=== PATIENT | female | born 1955 | race African-American/Black ===

== ENCOUNTER 2017-03-18 08:18 | Inpatient (IN) | payer OTHER ==
[2017-03-18 08:57] VITALS: BMI 32.4
--- NOTE | 2017-03-18 11:53 | HP ---
CIWA Score - CIWA Score Nausea/Vomitin Muscle Tremors: 4-Moderate,w/Arms Extend Anxiety: 4-Mod. Anxious/Guarded Agitation: 4-Moderately Restless Paroxysmal Sweats: 1-Minimal Palms Moist Orientation: 0-Oriented Tacttile Disturbances: 3-Moderate Itch/Numb/Burn Auditory Disturbances: 0-None Visual Disturbances: 0-None Headache: 0-None Present CIWA-Ar Total Score: 21 Admission ROS BHS - HPI Chief Complaint: DETOX TX FOR ALCOHOL DEPENDENCE Allergies/Adverse Reactions: Allergies Allergy/AdvReac Type Severity Reaction Status Date / Time No Known Allergies Allergy Verified 03/18/17 09:54 History of Present Illness: 61 Y/O AA/FEMALE WITH A HX OF ALCOHOL DEPENDENCE SEEKING DETOX TX. PT WAS TAKEN BY AMBULANCE TO [facility] LAST NIGHT DUE TO ALCOHOL INTOXICATION AND DISCHARGED THIS MORNING, REFERRED TO DETOX. Exam Limitations: No Limitations - Ebola screening Have you traveled outside of the country in the last 21 days: No Have you had contact with anyone from an Ebola affected area: No Have you been sick,other than usual withdrawal symptoms: No Do you have a fever: No - Review of Systems Constitutional: Chills, Loss of Appetite, Night Sweats, Changes in sleep EENT: reports: Blurred Vision, Nose Congestion, Dental Problems (DENTAL EXTRACTION 03/17/17.) Respiratory: reports: No Symptoms reported Cardiac: reports: Lightheadedness GI: reports: Diarrhea, Nausea, Poor Appetite, Poor Fluid Intake, Vomiting : reports: Frequency Musculoskeletal: reports: Back Pain, Joint Pain, Muscle Pain, Other (HX ARTHRITIS KNEE/HIP) Integumentary: reports: No Symptoms Reported Neuro: reports: Tremors, Unsteady Gait, Dizziness, Other (HX FALLS DUE TO ALCOHOL INTOXICATION; 2 BROKEN LEFT RIB 02/14/17.) Endocrine: reports: No Symptoms Reported Hematology: reports: No Symptoms Reported, Anemia Psychiatric: reports: Orientated x3, Anxious, Depressed Other Systems: Reviewed and Negative Patient History - Patient Medical History Hx Anemia: Yes (B12 WEEKLY INJ IN THE PAST) Hx Asthma: No Hx Chronic Obstructive Pulmonary Disease (COPD): No Hx Cardiac Disorders: Yes (2 stents-2014) Hx Hypertension: Yes (ON MED) Hx Hypercholesterolemia: Yes (ON MED) HX Cerebrovascular Accident: No Hx Seizures: No Hx Diabetes: No Hx Gastrointestinal Disorders: No Hx Genitourinary Disorders: Yes (UTI IN THE PAST) Hx Sexually Transmitted Disorders: Yes (SYPHILIS TX IN THE PAST) Hx Renal Disease (ESRD): No Hx Thyroid Disease: No Hx Human Immunodeficiency Virus (HIV): No (NEGATIVE HX) Hx Hepatitis C: No Hx Depression: Yes (ON MED--ABILIFY;PAXIL) Hx Suicide Attempt: Yes (cut left wrist in 2014) Hx Schizophrenia: No Other Medical History: HX 1 STENT IN LEFT THIGH;[place] I RIGHT THIGH- 2016 - Patient Surgical History Past Surgical History: Yes Hx Neurologic Surgery: No Hx Cataract Extraction: No Hx Cardiac Surgery: Yes (2 stents/cardiac catheterizations X 3) Hx Lung Surgery: No Hx Breast Surgery: No Hx Breast Biopsy: No Hx Abdominal Surgery: No Hx Appendectomy: No Hx Cholecystectomy: No Hx Genitourinary Surgery: No Hx Section: No Hx Orthopedic Surgery: No Hx Hysterectomy: Yes (1990; WITH ONE OVARY INTACT.) Other Surgical History: balloon, right extremity/stent. left extremity Anesthesia Reaction: No - PPD History Previous Implant?: Yes Documented Results: Positive w/o proof Implanted On Prior [facility] Admission?: No Results: CXR TBD PPD to be Administered?: No - Reproductive History Patient is a Female of Child Bearing Age (11 -55 yrs old): No (HX HYSTERECTOMY W / ONE OVARY IN PLACE.) LMP comment: 1990-HYSTERECTOMY Patient : No - Smoking Cessation Smoking history: Current every day smoker Have you smoked in the past 12 months: Yes Aproximately how many cigarettes per day: 2 Hx Chewing Tobacco Use: No Initiated information on smoking cessation: Yes 'Breaking Loose' booklet given: 03/18/17 - Substance & Tx. History Hx Alcohol Use: Yes (RUM/BEER) Hx Substance Use: Yes (MARIJUANA) Substance Use Type: Alcohol, Marijuana Hx Substance Use Treatment: Yes - Substances Abused Alcohol-rum/beer Route: Oral Frequency: Daily Amount used: 2 pts./8 (12 oz.) Age of first use: 10 Date of Last Use: 03/17/17 Marijuana Route: Smoking Frequency: 1-2 times per week Amount used: $10-20 Age of first use: 19 Date of Last Use: 03/17/17 Family Disease History - Family Disease History Family Disease History: Heart Disease: Mother (UT; STROKE-), Other: Father (AIDS-), Mother Admission Physical Exam [facility] - Vital Signs Vital Signs: Vital Signs - 24 hr 03/18/17 08:55 Temperature 98.3 F Pulse Rate 102 H Respiratory 20 Rate Blood Pressure 159/104 - Physical General Appearance: Yes: Moderate Distress, Obese, Irritable, Anxious HEENTM: Yes: EOMI, Normocephalic, SANAM, Pharynx Normal Respiratory: Yes: Chest Non-Tender, Lungs Clear, Normal Breath Sounds, No Respiratory Distress Neck: Yes: Supple, Trachea in good position Breast: Yes: Breast Exam Deferred Cardiology: Yes: Regular Rhythm, S1, S2, Tachycardia Abdominal: Yes: Normal Bowel Sounds, Non Tender, Soft, Protuberent Genitourinary: Yes: Other (N/C) Back: Yes: Within Normal Limits Musculoskeletal: Yes: full range of Motion, Gait Steady Extremities: Yes: Normal Range of Motion, Non-Tender, Tremors Neurological: Yes: manager center II-XII NML intact, Fully Oriented, Alert Integumentary: Yes: Dry, Warm Lymphatic: Yes: Within Normal Limits - Diagnostic (1) Alcohol dependence with uncomplicated withdrawal Current Visit: Yes Status: Acute (2) HTN (hypertension) Current Visit: Yes Status: Chronic Qualifiers: Hypertension type: essential hypertension Qualified Code(s): I10 - Essential (primary) hypertension (3) Hypercholesterolemia Current Visit: Yes Status: Chronic (4) S/P cardiac catheterization Current Visit: Yes Status: Chronic (5) S/P angioplasty with stent Current Visit: Yes Status: Chronic (6) History of anemia Current Visit: Yes Status: Suspected Cleared for Admission [facility] - Detox or Rehab [facility] Level of Care: Medically Managed Detox Regimen/Protocol: Librium [facility] Breath Alcohol Content Breath Alcohol Content: 0 Urine Pregancy Test - Result Urine Test Results: Negative- NO Line Present Urine Drug Screen - Results Drug Screen Negative: No Urine Drug Screen Results: THC-Marijuana
[2017-03-18] MEDS ORDERED: P-EPHED 60MG/TRIPROLIDI 2.5MG TABLET PO PRN (12:14)
[2017-03-18] MEDS ORDERED: IBUPROFEN 400 MG TABLET (FP) PO PRN (12:14)
[2017-03-18] MEDS ORDERED: MAGNESIUM CITRATE 300 ML BOTTLE PO PRN (12:14)
[2017-03-18] MEDS ORDERED: LOPERAMIDE HCL 2 MG CAPSULE PO PRN (12:14)
[2017-03-18] MEDS ORDERED: chlordiazePOXIDE HCL 25 MG CAPSULE PO PRN (12:14)
[2017-03-18] MEDS ORDERED: MENTHOL/PHENOL 1 EACH UD MM PRN (12:14)
[2017-03-18] MEDS ORDERED: hydrOXYzine PAMOATE 25 MG CAPSULE (FP) PO PRN (12:14)
[2017-03-18] MEDS ORDERED: NICOTINE POLACRILEX 2 MG GUM BUC PRN (12:14)
[2017-03-18] MEDS ORDERED: ACETAMINOPHEN 325 MG TABLET (FP) PO PRN (12:14)
[2017-03-18] MEDS ORDERED: MAGNESIUM HYDROX 2400MG/30ML ORAL SUSPENSION 30 ML CUP PO PRN (12:14)
[2017-03-18] MEDS ORDERED: MAG HYDROX/AL HYDROX/SIMETH 30 ML UNIT-DOSE CUP PO PRN (12:14)
[2017-03-18] MEDS ORDERED: guaiFENesin/D-METHORPHAN HB 10 ML UNIT-DOSE CUPS PO PRN (12:14)
[2017-03-18] MEDS ORDERED: chlordiazePOXIDE HCL 25 MG CAPSULE PO ONE (12:29)
[2017-03-18] MEDS: NICOTINE 14 MG/24 HOURS TOPICAL PATCH TD SCH (13:36)
[2017-03-18 17:01] LABS: URINE APPEARANCE SLCLOUDY; URINE BILIRUBIN NEGATIVE (NEGATIVE); URINE BLOOD NEGATIVE (NEGATIVE); URINE COLOR YELLOW; URINE GLUCOSE (UA) NEGATIVE (NEGATIVE); URINE KETONE NEGATIVE (NEGATIVE); URINE NITRITE NEGATIVE (NEGATIVE); URINE PROTEIN NEGATIVE (NEGATIVE); URINE UROBILINOGEN NEGATIVE E.U./dl (0.2-1.0)
--- NOTE | 2017-03-18 17:16 | CONSULT ---
[facility] Psychiatric Consult - Data Date of interview: 03/18/17 Admission source: [facility] Identifying data: First admission to [facility] for this 61 y/o AA female seeking detox treatment,on ,for alcohol and marijuana dependence.Patient is single,a mother of two,domiciled,retired from [employer] and supported on pension + Social Security Disability benefits. Substance Abuse History: - Smoking Cessation. Smoking history: Current every day smoker. Have you smoked in the past 12 months: Yes. Aproximately how many cigarettes per day: 2. Hx Chewing Tobacco Use: No. Initiated information on smoking cessation: Yes. 'Breaking Loose' booklet given: 03/18/17. - Substance & Tx. History. Hx Alcohol Use: Yes (RUM/BEER). Hx Substance Use: Yes ( MARIJUANA). Substance Use Type: Alcohol, Marijuana. Hx Substance Use Treatment : Yes. - Substances Abused. Alcohol-rum/beer. Route: Oral. Frequency: Daily. Amount used: 2 pts./8 (12 oz.). Age of first use: 10. Date of Last Use : 03/17/17. Marijuana. Route: Smoking. Frequency: 1-2 times per week. Amount used: $10-20. Age of first use: 19. Date of Last Use: 03/17/17. Confirmed by patient. Medical History: Hypertension,hypercholesterolemia,anemia in the past,arthritis (both knees and hip),cardiac issues (two stents/cardiac catheterizations X 3), orthosurgery for a torn meniscus and a history of treatment for urinary tract infections/syphilis.Hysterectomy (with one ovary left) in 1990. Psychiatric History: History of two [facility] [facility]Diagnosed with MDD.Prescribed paxil 30 mg/day + wellbutrin XL 300 mg/day + abilify 5 mg/hs.No contact with psychiatric OPD care providers.Patient informs that she depends on her primary care doctors for medication refills.Last took abilify " a few months ago ".Paxil and bupropion are reported to having been taken two days earlier prior to this [facility] visit.Ms Murray admits to a history of one suicide attempt via wrist-cutting two years ago.She requests that paxil,abilify and bupropion be included in this regimen of medications. Physical/Sexual Abuse/Trauma History: Patient denies. Additional Comment: Urine Drug Screen Results: THC-Marijuana.Noted. Mental Status Exam - Mental Status Exam Alert and Oriented to: Time, Place, Person Cognitive Function: Good Patient Appearance: Well Groomed Mood: Apprehensive, Hopeful Affect: Appropriate, Normal Range Patient Behavior: Fatigued, Appropriate, Cooperative Speech Pattern: Clear, Appropriate Voice Loudness: Normal Thought Process: Goal Oriented Thought Disorder: Not Present Hallucinations: Denies Suicidal Ideation: Denies Homicidal Ideation: Denies Insight/Judgement: Poor Sleep: Fair Appetite: Good Muscle strength/Tone: Normal Gait/Station: Normal Psychiatric Findings - Problem List ([place] 1, 2,3) (1) Alcohol dependence with uncomplicated withdrawal Current Visit: Yes Status: Acute (2) Marihuana dependence Current Visit: Yes Status: Acute (3) Substance induced mood disorder Current Visit: Yes Status: Acute (4) Depressive disorder Current Visit: Yes Status: Chronic (5) HTN (hypertension) Current Visit: Yes Status: Chronic Qualifiers: Hypertension type: essential hypertension Qualified Code(s): I10 - Essential (primary) hypertension (6) Hypercholesterolemia Current Visit: Yes Status: Chronic (7) S/P angioplasty with stent Current Visit: Yes Status: Chronic (8) S/P cardiac catheterization Current Visit: Yes Status: Chronic (9) History of anemia Current Visit: Yes Status: Suspected - Initial Treatment Plan Initial Treatment Plan: Psychoeducation.Detoxification.Medications : paxil 20 mg po daily + wellbutrin XL 150 mg po daily + abilify 2 mg po hs (reduced dose) .Side effects/benefits of each medication are discussed with the patient.She agrees with this careplan.Contact was established with [facility] (with patient's verbal authorization) at [phone] : filled scripts for wellbutrin Xl and paxil 30 mg were claimed on 03/01/17.Last claim for abilify 5 mg occurred in july 2016.Daily observation.
[2017-03-18 17:18] LABS: URINE LEUK ESTERASE 1+ (NEGATIVE)
[2017-03-18] MEDS: chlordiazePOXIDE HCL 25 MG CAPSULE PO SCH ×2 (17:32→22:27)
[2017-03-18 21:37] LABS: URINE BACTERIA RARE /hpf (NONE SEEN); URINE MUCUS RARE; URINE RBC 2 /hpf (0-3); URINE WBC 35 /hpf (3-5)
[2017-03-18] MEDS: THIAMINE HCL 100 MG TABLET (FP) PO SCH (22:27)
[2017-03-18] MEDS: diphenhydrAMINE HCL 50 MG CAPSULE PO PRN (22:27)
[2017-03-18] MEDS: ARIPiprazole 2 MG TABLET PO SCH (22:27)
[2017-03-19] MEDS: chlordiazePOXIDE HCL 25 MG CAPSULE PO SCH ×4 (06:39→22:12)
[2017-03-19 10:07] LABS: HIV 1 & 2 AB NEGATIVE; HIV 1 AGp24 NEGATIVE
[2017-03-19] MEDS: PRENATAL VITAMINS W/ FOLIC ACID TABLET (FP) PO SCH (10:12)
[2017-03-19] MEDS: LISINOPRIL 20 MG TABLET (FP) PO SCH (10:12)
[2017-03-19] MEDS: PARoxetine HCL 20 MG TABLET (FP) PO SCH (10:12)
[2017-03-19] MEDS: amLODIPine BESYLATE 10 MG TABLET (FP) PO SCH (10:12)
[2017-03-19] MEDS: NICOTINE 14 MG/24 HOURS TOPICAL PATCH TD SCH (10:13)
--- NOTE | 2017-03-19 10:14 | PN ---
S CIWA - CIWA Score Nausea/Vomitin Muscle Tremors: 3 Anxiety: 3 Agitation: 3 Paroxysmal Sweats: 1-Minimal Palms Moist Orientation: 0-Oriented Tacttile Disturbances: 1-Very Mild Itch/Numbness Auditory Disturbances: 1-Very Mild Visual Disturbances: 1-Very Mild Sensitivity Headache: 2-Mild CIWA-Ar Total Score: 18 BHS Progress Note (SOAP) Subjective: ALERT,IRRITABLE,ANXIOUS,INTERRUPTED SLEEP,TREMOR Objective: 03/19/17 10:12 Vital Signs Temperature 97.6 F 03/19/17 10:07 Pulse Rate 99 H 03/19/17 10:07 Respiratory Rate 20 03/19/17 10:07 Blood Pressure 148/109 03/19/17 10:07 O2 Sat by Pulse Oximetry (%) EKG NSR NO CHEST PAIN,NO SB,NO DIZZINESS Laboratory Last Values Urine Color Yellow 03/18/17 14:00 Urine Appearance Slcloudy 03/18/17 14:00 Urine pH 5.0 (5.0-8.0) 03/18/17 14:00 Ur Specific [place] 1.017 (1.001-1.035) 03/18/17 14:00 Urine Protein Negative (NEGATIVE) 03/18/17 14:00 Urine Glucose (UA) Negative (NEGATIVE) 03/18/17 14:00 Urine Ketones Negative (NEGATIVE) 03/18/17 14:00 Urine Blood Negative (NEGATIVE) 03/18/17 14:00 Urine Nitrite Negative (NEGATIVE) 03/18/17 14:00 Urine Bilirubin Negative (NEGATIVE) 03/18/17 14:00 Urine Urobilinogen Negative E.U./dl (0.2-1.0) 03/18/17 14:00 Ur Leukocyte Esterase 1+ (NEGATIVE) H 03/18/17 14:00 Urine RBC 2 /hpf (0-3) 03/18/17 14:00 Urine WBC 35 /hpf (3-5) 03/18/17 14:00 Ur Epithelial Cells Many /hpf (FEW) 03/18/17 14:00 Urine Bacteria Rare /hpf (NONE SEEN) 03/18/17 14:00 Urine Mucus Rare 03/18/17 14:00 HIV 1&2 Antibody Screen Negative 03/18/17 10:50 HIV P24 Antigen Negative 03/18/17 10:50 03/19/17 10:13 LABS PENDING Assessment: 03/19/17 10:13 WITHDRAWAL SYMPTOM 03/19/17 10:13 Plan: CONTINUE DETOX,ENCOURAGE ORAL FLUID,REPEAT UA
[2017-03-19 10:57] LABS: MCH 29.3 pg (25.7-33.7); MCHC 31.1 g/dl (32.0-36.0); MEAN CELL VOLUME 93.9 fl (80-96); MEAN PLT VOLUME 9.9 fl (7.5-11.1); PLATELET COUNT 185 K/MM3 (134-434); RDW 15.2 % (11.6-15.6); WHITE BLOOD COUNT 8.3 K/mm3 (4.0-10.0)
[2017-03-19 11:23] LABS: ALBUMIN 3.8 g/dl (3.4-5.0); BILIRUBIN,TOTAL 0.5 mg/dL (0.2-1.0); CALCIUM 9.2 mg/dL (8.5-10.1); COCKROFT - GAULT 86.105; TOT PROT 7.7 g/dl (6.4-8.2)
[2017-03-19 12:42] LABS: SICKLE CELL SCREEN NEGATIVE (NEGATIVE)
[2017-03-19 16:35] LABS: URINE APPEARANCE CLEAR; URINE BILIRUBIN NEGATIVE (NEGATIVE); URINE BLOOD NEGATIVE (NEGATIVE); URINE COLOR YELLOW; URINE GLUCOSE (UA) NEGATIVE (NEGATIVE); URINE KETONE NEGATIVE (NEGATIVE); URINE NITRITE NEGATIVE (NEGATIVE); URINE PROTEIN NEGATIVE (NEGATIVE); URINE UROBILINOGEN NEGATIVE E.U./dl (0.2-1.0)
[2017-03-19 16:43] LABS: URINE LEUK ESTERASE TRACE (NEGATIVE)
[2017-03-19] MEDS: ARIPiprazole 2 MG TABLET PO SCH (22:12)
[2017-03-19] MEDS: THIAMINE HCL 100 MG TABLET (FP) PO SCH (22:12)
[2017-03-19] MEDS: diphenhydrAMINE HCL 50 MG CAPSULE PO PRN (22:13)
[2017-03-20] MEDS: chlordiazePOXIDE HCL 25 MG CAPSULE PO SCH ×2 (05:23→11:10)
--- NOTE | 2017-03-20 10:38 | PN ---
S CIWA - CIWA Score Nausea/Vomitin Muscle Tremors: 3 Anxiety: 3 Agitation: 3 Paroxysmal Sweats: 1-Minimal Palms Moist Orientation: 0-Oriented Tacttile Disturbances: 1-Very Mild Itch/Numbness Auditory Disturbances: 1-Very Mild Visual Disturbances: 1-Very Mild Sensitivity Headache: 2-Mild CIWA-Ar Total Score: 18 BHS Progress Note (SOAP) Subjective: ALERT,IRRITABLE,ANXIOUS,INTERRUPTED SLEEP,TREMOR Objective: 03/20/17 10:37 Vital Signs Temperature 98.2 F 03/20/17 10:06 Pulse Rate 101 H 03/20/17 10:06 Respiratory Rate 18 03/20/17 10:06 Blood Pressure 150/119 03/20/17 10:06 O2 Sat by Pulse Oximetry (%) Laboratory Last Values WBC 8.3 K/mm3 (4.0-10.0) 03/19/17 06:05 RBC 5.11 M/mm3 (3.60-5.2) 03/19/17 06:05 Hgb 15.0 GM/dL (10.7-15.3) 03/19/17 06:05 Hct 48.0 % (32.4-45.2) H 03/19/17 06:05 MCV 93.9 fl (80-96) 03/19/17 06:05 MCHC 31.1 g/dl (32.0-36.0) L 03/19/17 06:05 RDW 15.2 % (11.6-15.6) 03/19/17 06:05 Plt Count 185 K/MM3 (134-434) 03/19/17 06:05 MPV 9.9 fl (7.5-11.1) 03/19/17 06:05 Sickle Cell Screen Negative (NEGATIVE) 03/19/17 06:05 Sodium 142 mmol/L (136-145) 03/19/17 06:05 Potassium 4.2 mmol/L (3.5-5.1) 03/19/17 06:05 Chloride 107 mmol/L (98-107) 03/19/17 06:05 Carbon Dioxide 25 mmol/L (21-32) 03/19/17 06:05 Anion Gap 10 (8-16) 03/19/17 06:05 BUN 12 mg/dL (7-18) 03/19/17 06:05 Creatinine 1.0 mg/dL (0.55-1.02) 03/19/17 06:05 Creat Clearance w eGFR 56.56 (>60) 03/19/17 06:05 Random Glucose 97 mg/dL (74-106) 03/19/17 06:05 Calcium 9.2 mg/dL (8.5-10.1) 03/19/17 06:05 Total Bilirubin 0.5 mg/dL (0.2-1.0) 03/19/17 06:05 AST 29 U/L (15-37) 03/19/17 06:05 ALT 26 U/L (12-78) 03/19/17 06:05 Alkaline Phosphatase 97 U/L (45-117) 03/19/17 06:05 Total Protein 7.7 g/dl (6.4-8.2) 03/19/17 06:05 Albumin 3.8 g/dl (3.4-5.0) 03/19/17 06:05 Urine Color Yellow 03/19/17 Unknown Urine Appearance Clear 03/19/17 Unknown Urine pH 6.0 (5.0-8.0) 03/19/17 Unknown Ur Specific [place] 1.015 (1.001-1.035) 03/19/17 Unknown Urine Protein Negative (NEGATIVE) 03/19/17 Unknown Urine Glucose (UA) Negative (NEGATIVE) 03/19/17 Unknown Urine Ketones Negative (NEGATIVE) 03/19/17 Unknown Urine Blood Negative (NEGATIVE) 03/19/17 Unknown Urine Nitrite Negative (NEGATIVE) 03/19/17 Unknown Urine Bilirubin Negative (NEGATIVE) 03/19/17 Unknown Urine Urobilinogen Negative E.U./dl (0.2-1.0) 03/19/17 Unknown Ur Leukocyte Esterase Trace (NEGATIVE) H D 03/19/17 Unknown Urine RBC 2 /hpf (0-3) 03/18/17 14:00 Urine WBC 35 /hpf (3-5) 03/18/17 14:00 Ur Epithelial Cells Many /hpf (FEW) 03/18/17 14:00 Urine Bacteria Rare /hpf (NONE SEEN) 03/18/17 14:00 Urine Mucus Rare 03/18/17 14:00 RPR Titer Nonreactive (NONREACTIVE) 03/19/17 06:05 HIV 1&2 Antibody Screen Negative 03/18/17 10:50 HIV P24 Antigen Negative 03/18/17 10:50 Assessment: 03/20/17 10:37 WITHDRAWAL SYMPTOM Plan: CONTINUE DETOX
[2017-03-20] MEDS: amLODIPine BESYLATE 10 MG TABLET (FP) PO SCH (11:09)
[2017-03-20] MEDS: PRENATAL VITAMINS W/ FOLIC ACID TABLET (FP) PO SCH (11:09)
[2017-03-20] MEDS: PARoxetine HCL 20 MG TABLET (FP) PO SCH (11:10)
[2017-03-20] MEDS: LISINOPRIL 20 MG TABLET (FP) PO SCH (11:10)
[2017-03-20] MEDS: NICOTINE 14 MG/24 HOURS TOPICAL PATCH TD SCH (11:10)
--- NOTE | 2017-03-20 17:04 | PN ---
[facility] Progress Note Note: PATIENT COMPLAINED OF PAIN TO LEFT RIB CAGE ANTERIOR HISTORY OF FX OF LEFT 6TH AND 7TH RIB ON 03/17/17 TREATED AT [facility] AFTER A FALL UNDER INFLUENCE OF ALCOHOL AT THAT TIME S/P ANGIOPLASTY WITH STENT IN 2014 AT [facility] STATED HAD CARDIAC CATH IN 03/17/17 WAS TOLD TO BE OK ALERT NO JUGULAR VEIN DILATATION HEART NORMAL HEART SOUND,S1S2,NO MURMUR LUNG CLEAR,NO WHEEZING PAIN AND TENDERNESS OVER THE ANTERIOR RIB CAGE 6TH AND 7TH ABDOMEN SOFT,NO DISTENSION NO PAIN OR TENDERNESS NO CALF TENDERNESS IMPRESSION PAIN SECONDARY TO FX LEFT 6TH AND 7TH RIBS TREATMENT MOTRIN 600 MGS PO NOW CLOSED MONITORING CONTINUE DETOX
[2017-03-20] MEDS: chlordiazePOXIDE 5 MG CAPSULE PO SCH ×2 (17:14→22:19)
--- NOTE | 2017-03-20 17:14 | PN ---
S Progress Note Note: addendum patient has cardiac catheterization in [facility] on 03/10/17 was told to be ok fell while intoxicated on 02/14/17 treated at [facility] with fx left 6th and 7th ribs
[2017-03-20] MEDS ORDERED: IBUPROFEN 600 MG TABLET (FP) PO ONE (17:15)
[2017-03-20] MEDS ORDERED: ATORVASTATIN CA 40 MG TABLET (FP) ONE (21:26)
[2017-03-20] MEDS ORDERED: ATORVASTATIN CA 80 MG TABLET (FP) PO SCH (22:00)
[2017-03-20] MEDS: diphenhydrAMINE HCL 50 MG CAPSULE PO PRN (22:19)
[2017-03-20] MEDS: THIAMINE HCL 100 MG TABLET (FP) PO SCH (22:19)
[2017-03-20] MEDS: ARIPiprazole 2 MG TABLET PO SCH (22:20)
--- NOTE | 2017-03-21 00:15 | EKG ---
Test Reason : Blood Pressure : / mmHG Vent. Rate : 093 BPM Atrial Rate : 093 BPM P-R Int : 138 ms QRS Dur : 086 ms QT Int : 356 ms P-R-T Axes : 060 055 043 degrees QTc Int : 442 ms NORMAL SINUS RHYTHM POSSIBLE LEFT ATRIAL ENLARGEMENT BORDERLINE ECG NO PREVIOUS ECGS AVAILABLE Confirmed by MALA SCHWAB, ANTWAN ([id number]) on 03/21/2017 12:15:09 AM Referred By: Thad Griffin Confirmed By:ANTWAN MEDEIROS MD
[2017-03-21] MEDS: chlordiazePOXIDE 5 MG CAPSULE PO SCH ×2 (05:45→10:14)
--- NOTE | 2017-03-21 09:35 | PN ---
BHS Progress Note (SOAP) Subjective: sweats, rib pain on rt Objective: 03/21/17 09:34 Vital Signs Temperature 98.1 F 03/21/17 06:00 Pulse Rate 85 03/21/17 06:00 Respiratory Rate 18 03/21/17 06:00 Blood Pressure 141/97 03/21/17 06:00 O2 Sat by Pulse Oximetry (%) Laboratory Tests 03/18/17 03/18/17 03/19/17 10:50 14:00 06:05 WBC 8.3 RBC 5.11 Hgb 15.0 Hct 48.0 H MCV 93.9 MCHC 31.1 L RDW 15.2 Plt Count 185 MPV 9.9 Sickle Cell Screen Negative Sodium Potassium Chloride Carbon Dioxide Anion Gap BUN Creatinine Creat Clearance w eGFR Random Glucose Calcium Total Bilirubin AST ALT Alkaline Phosphatase Total Protein Albumin Urine Color Yellow Urine Appearance Slcloudy Urine pH 5.0 Ur Specific [place] 1.017 Urine Protein Negative Urine Glucose (UA) Negative Urine Ketones Negative Urine Blood Negative Urine Nitrite Negative Urine Bilirubin Negative Urine Urobilinogen Negative Ur Leukocyte Esterase 1+ H Urine RBC 2 Urine WBC 35 Ur Epithelial Cells Many Urine Bacteria Rare Urine Mucus Rare RPR Titer HIV 1&2 Antibody Screen Negative HIV P24 Antigen Negative 03/19/17 03/19/17 03/19/17 06:05 06:05 Unknown WBC RBC Hgb Hct MCV MCHC RDW Plt Count MPV Sickle Cell Screen Sodium 142 Potassium 4.2 Chloride 107 Carbon Dioxide 25 Anion Gap 10 BUN 12 Creatinine 1.0 Creat Clearance w eGFR 56.56 Random Glucose 97 Calcium 9.2 Total Bilirubin 0.5 AST 29 ALT 26 Alkaline Phosphatase 97 Total Protein 7.7 Albumin 3.8 Urine Color Yellow Urine Appearance Clear Urine pH 6.0 Ur Specific [place] 1.015 Urine Protein Negative Urine Glucose (UA) Negative Urine Ketones Negative Urine Blood Negative Urine Nitrite Negative Urine Bilirubin Negative Urine Urobilinogen Negative Ur Leukocyte Esterase Trace H D Urine RBC Urine WBC Ur Epithelial Cells Urine Bacteria Urine Mucus RPR Titer Nonreactive HIV 1&2 Antibody Screen HIV P24 Antigen Assessment: 03/21/17 09:34 withdrawal sx's h/o rib fx 03/21/17 10:52 Plan: cont. detox increase fluids analgesic balm motrin prn
[2017-03-21] MEDS: PRENATAL VITAMINS W/ FOLIC ACID TABLET (FP) PO SCH (10:14)
[2017-03-21] MEDS: LISINOPRIL 20 MG TABLET (FP) PO SCH (10:15)
[2017-03-21] MEDS: CLOPIDOGREL BISULFATE 75 MG TABLET (FP) PO SCH (10:15)
[2017-03-21] MEDS: METOPROLOL SUCCINATE 25 MG TAB.SR.24H (FP) PO SCH (10:15)
[2017-03-21] MEDS: NICOTINE 14 MG/24 HOURS TOPICAL PATCH TD SCH (10:15)
[2017-03-21] MEDS: PARoxetine HCL 20 MG TABLET (FP) PO SCH (10:15)
[2017-03-21] MEDS: amLODIPine BESYLATE 10 MG TABLET (FP) PO SCH (10:15)
[2017-03-21] MEDS: METHYL SALICYLATE/MENTHOL OINT 30 GM TUBE TP SCH ×2 (10:16→22:08)
[2017-03-21] MEDS: chlordiazePOXIDE HCL 10 MG CAPSULE PO SCH ×2 (17:25→22:07)
[2017-03-21] MEDS ORDERED: ATORVASTATIN CA 40 MG TABLET (FP) PO SCH (22:00)
[2017-03-21] MEDS: ARIPiprazole 2 MG TABLET PO SCH (22:06)
[2017-03-21] MEDS: diphenhydrAMINE HCL 50 MG CAPSULE PO PRN (22:07)
[2017-03-21] MEDS: THIAMINE HCL 100 MG TABLET (FP) PO SCH (22:07)
[2017-03-22] MEDS: chlordiazePOXIDE HCL 10 MG CAPSULE PO SCH (06:03)
[2017-03-22 06:17] VITALS: TEMP 98.2
--- NOTE | 2017-03-22 08:52 | DS ---
[facility] Detox Discharge Summary Admission Date: 03/18/17 Discharge Date: 03/22/17 - History Present History: Alcohol Dependence, Cannabis Dependence - Physical Exam Results Vital Signs: Vital Signs Temperature 98.2 F 03/22/17 06:00 Pulse Rate 78 03/22/17 06:00 Respiratory Rate 18 03/22/17 06:00 Blood Pressure 147/93 03/22/17 06:00 O2 Sat by Pulse Oximetry (%) - Treatment Hospital Course: Detox Protocol Followed, Detoxed Safely, Responded well, Discharged Condition Good, Rehab Referral Accepted - Medication Discharge Medications: Ambulatory Orders Amlodipine Besylate [Norvasc -] 10 mg PO DAILY 03/18/17 Aripiprazole [Abilify -] 5 mg PO DAILY 03/18/17 Atorvastatin Ca [Lipitor] 80 mg PO HS 03/18/17 Bupropion HCl [Wellbutrin Sr] 150 mg PO BID 03/18/17 Clopidogrel Bisulfate [Plavix -] 75 mg PO DAILY 03/18/17 Lisinopril [Prinivil] 20 mg PO DAILY 03/18/17 Metoprolol Succinate [Toprol Xl -] 25 mg PO DAILY 03/18/17 Nicotine Patch [Nicoderm Patch -] 1 patch TD DAILY 03/18/17 Paroxetine HCl [Paxil -] 30 mg PO DAILY 03/18/17 - Diagnosis (1) Alcohol dependence with uncomplicated withdrawal Current Visit: Yes Status: Chronic (2) Marihuana dependence Current Visit: Yes Status: Chronic (3) Substance induced mood disorder Current Visit: Yes Status: Chronic (4) Depressive disorder Current Visit: Yes Status: Chronic (5) HTN (hypertension) Current Visit: Yes Status: Chronic Qualifiers: Hypertension type: essential hypertension Qualified Code(s): I10 - Essential (primary) hypertension (6) Hypercholesterolemia Current Visit: Yes Status: Chronic (7) S/P angioplasty with stent Current Visit: Yes Status: Chronic (8) S/P cardiac catheterization Current Visit: Yes Status: Chronic (9) History of anemia Current Visit: Yes Status: Suspected - AMA Did Patient Leave Against Medical Advice: No
[2017-03-22 09:32] VITALS: BP 156/94; PULSE 89
[2017-03-22] MEDS: METOPROLOL SUCCINATE 25 MG TAB.SR.24H (FP) PO SCH (09:32)
[2017-03-22] MEDS: PARoxetine HCL 20 MG TABLET (FP) PO SCH (09:32)
[2017-03-22] MEDS: amLODIPine BESYLATE 10 MG TABLET (FP) PO SCH (09:32)
[2017-03-22] MEDS: LISINOPRIL 20 MG TABLET (FP) PO SCH (09:32)
[2017-03-22] MEDS: PRENATAL VITAMINS W/ FOLIC ACID TABLET (FP) PO SCH (09:32)
[2017-03-22] MEDS: CLOPIDOGREL BISULFATE 75 MG TABLET (FP) PO SCH (09:32)
[2017-03-22] MEDS: METHYL SALICYLATE/MENTHOL OINT 30 GM TUBE TP SCH (09:33)
== END 2017-03-22 09:49 | disposition home or self-care (01) | DRG 897 ==
LOC: YASAS 08:18 → Y6N 12:15
PROVIDERS: ADMIT Internal Medicine; ATTEND Internal Medicine
PROC: HZ2ZZZZ Detoxification Services for Substance Abuse Treatment (ICD-10-PCS; principal; 2017-03-22)
DX: F10.230 Alcohol dependence with withdrawal, uncomplicated (principal); F12.20 Cannabis dependence, uncomplicated; F19.24 Other psychoactive substance dependence with psychoactive substance-induced mood disorder; F32.9 Major depressive disorder, single episode, unspecified; E78.00 Pure hypercholesterolemia, unspecified; D64.9 Anemia, unspecified; Z95.5 Presence of coronary angioplasty implant and graft; Z86.19 Personal history of other infectious and parasitic diseases
CPT/HCPCS: 36415; 71020-TC; 80053; 81003; 81015; 85027; 85660; 86593; 87389; 93005; 93010

== ENCOUNTER 2020-08-18 12:30 | Inpatient (IN) | payer OTHER ==
[2020-08-18] MEDS ORDERED: MAG HYDROX/AL HYDROX/SIMETH 30 ML UNIT-DOSE CUP PO PRN (16:43)
[2020-08-18] MEDS ORDERED: IBUPROFEN 400 MG TABLET (FP) PO PRN (16:43)
[2020-08-18] MEDS ORDERED: MAGNESIUM HYDROX 2400MG/30ML ORAL SUSPENSION 30 ML CUP PO PRN (16:43)
[2020-08-18] MEDS ORDERED: P-EPHED 60MG/TRIPROLIDI 2.5MG TABLET PO PRN (16:43)
[2020-08-18] MEDS ORDERED: MAGNESIUM CITRATE 300 ML BOTTLE PO PRN (16:43)
[2020-08-18] MEDS ORDERED: LOPERAMIDE HCL 2 MG CAPSULE PO PRN (16:43)
[2020-08-18] MEDS ORDERED: guaiFENesin 200 MG/10 ML 10 ML UNIT-DOSE CUPS PO PRN (16:43)
[2020-08-18 16:52] VITALS: BMI 24.3
[2020-08-18] MEDS: MELATONIN 5 MG TABLETS PO SCH (21:15)
[2020-08-18] MEDS: THIAMINE HCL 100 MG TABLET (FP) PO SCH (21:15)
[2020-08-19] MEDS: PRENATAL VITAMINS W/ FOLIC ACID TABLET (FP) PO SCH (09:25)
[2020-08-19] MEDS: NICOTINE 21 MG/24 HOURS TOPICAL PATCH TD SCH (09:26)
[2020-08-19] MEDS ORDERED: LISINOPRIL 20 MG TABLET PO SCH (10:15)
[2020-08-19 10:46] LABS: HEMATOCRIT 44.7 % (32.4-45.2); HEMOGLOBIN 14.2 GM/dL (10.7-15.3); MCH 28.5 pg (25.7-33.7); MCHC 31.8 g/dl (32.0-36.0); MEAN CELL VOLUME 89.5 fl (80-96); MEAN PLT VOLUME 10.7 fl (7.5-11.1); PLATELET COUNT 213 K/MM3 (134-434); RBC 4.99 M/mm3 (3.60-5.2); RDW 14.7 % (11.6-15.6); WHITE BLOOD COUNT 9.9 K/mm3 (4.0-10.0)
[2020-08-19 10:48] LABS: EPI CELLS 16 /uL (0-25.1); HYALINE CASTS 1 /uL (0-3.1); URINE APPEARANCE CLEAR; URINE BACTERIA 225 /uL (0-1359); URINE BILIRUBIN NEGATIVE (NEGATIVE); URINE COLOR YELLOW; URINE GLUCOSE (UA) NEGATIVE (NEGATIVE); URINE KETONE NEGATIVE (NEGATIVE); URINE LEUK ESTERASE 3+ (NEGATIVE); URINE NITRITE NEGATIVE (NEGATIVE); URINE PROTEIN NEGATIVE (NEGATIVE); URINE RBC 9 /uL (0-23.9); URINE WBC 303 /uL (0-25.8)
[2020-08-19 11:01] LABS: ALBUMIN 3.5 g/dl (3.4-5.0); BILIRUBIN,TOTAL 0.4 mg/dL (0.2-1); CALCIUM 9.1 mg/dL (8.5-10.1); CREATININE 1.5 mg/dL (0.55-1.3); TOT PROT 7.3 g/dl (6.4-8.2)
[2020-08-19] MEDS: metoPROLOL SUCCINATE 25 MG TAB.SR.24H (FP) PO SCH (11:04)
[2020-08-19] MEDS: amLODIPine BESYLATE 10 MG TABLET (FP) PO SCH (11:04)
[2020-08-19] MEDS: CLOPIDOGREL BISULFATE 75 MG TABLET (FP) PO SCH (11:15)
[2020-08-19 11:26] LABS: SICKLE CELL SCREEN NEGATIVE (NEGATIVE)
[2020-08-19] MEDS ORDERED: PT OWN MED DRAWER 7, Y5N ONE (12:10)
[2020-08-19] MEDS ORDERED: ATORVASTATIN CA 40 MG TABLET (FP) ONE (20:21)
[2020-08-19] MEDS: METHOCARBAMOL 500 MG TABLET PO PRN (21:06)
[2020-08-19] MEDS: MELATONIN 5 MG TABLETS PO SCH (21:06)
[2020-08-19] MEDS: ATORVASTATIN CA 80 MG TABLET (FP) PO SCH (21:06)
[2020-08-19] MEDS: THIAMINE HCL 100 MG TABLET (FP) PO SCH (21:06)
[2020-08-19] MEDS: ARIPiprazole 2 MG TABLET PO SCH (21:34)
[2020-08-20] MEDS ORDERED: MASKS NR ONE (08:26)
[2020-08-20] MEDS: NICOTINE 21 MG/24 HOURS TOPICAL PATCH TD SCH (09:29)
[2020-08-20] MEDS: amLODIPine BESYLATE 10 MG TABLET (FP) PO SCH (09:29)
[2020-08-20] MEDS: PAROXETINE HCL 20 MG, PAROXETINE HCL 10 MG PO SCH (09:30)
[2020-08-20] MEDS: CLOPIDOGREL BISULFATE 75 MG TABLET (FP) PO SCH (09:30)
[2020-08-20] MEDS: PRENATAL VITAMINS W/ FOLIC ACID TABLET (FP) PO SCH (09:30)
[2020-08-20] MEDS: metoPROLOL SUCCINATE 25 MG TAB.SR.24H (FP) PO SCH ×2 (09:30→21:10)
[2020-08-20] MEDS ORDERED: PARoxetine HCL 30 MG TABLET PO SCH (10:00)
[2020-08-20] MEDS ORDERED: ONDANSETRON *ODT* 4 MG TABLET SL ONE (11:02)
[2020-08-20] MEDS ORDERED: ATORVASTATIN CA 40 MG TABLET (FP) ONE (19:01)
[2020-08-20] MEDS ORDERED: PT OWN MED DRAWER 7, Y5N ONE (19:16)
[2020-08-20] MEDS: ACETAMINOPHEN 325 MG TABLET (FP) PO PRN (19:50)
[2020-08-20] MEDS: MIRTAZAPINE 15 MG TABLET (FP) PO SCH (21:10)
[2020-08-20] MEDS: THIAMINE HCL 100 MG TABLET (FP) PO SCH (21:10)
[2020-08-20] MEDS: traZODone HCL 50 MG TABLET (FP) PO SCH (21:10)
[2020-08-20] MEDS: ARIPiprazole 2 MG TABLET PO SCH (21:11)
[2020-08-20] MEDS: ATORVASTATIN CA 80 MG TABLET (FP) PO SCH (21:11)
[2020-08-20] MEDS: MELATONIN 5 MG TABLETS PO SCH (21:12)
[2020-08-20] MEDS: METHOCARBAMOL 500 MG TABLET PO PRN (21:12)
[2020-08-21] MEDS ORDERED: PT OWN MED DRAWER 7, Y5N ONE ×3 (08:37→15:46)
[2020-08-21] MEDS: NICOTINE POLACRILEX 2 MG GUM BC PRN (09:27)
[2020-08-21] MEDS: amLODIPine BESYLATE 10 MG TABLET (FP) PO SCH (09:27)
[2020-08-21] MEDS: PRENATAL VITAMINS W/ FOLIC ACID TABLET (FP) PO SCH (09:27)
[2020-08-21] MEDS: NICOTINE 21 MG/24 HOURS TOPICAL PATCH TD SCH (09:27)
[2020-08-21] MEDS: CLOPIDOGREL BISULFATE 75 MG TABLET (FP) PO SCH (09:28)
[2020-08-21] MEDS: metoPROLOL SUCCINATE 25 MG TAB.SR.24H (FP) PO SCH (09:28)
[2020-08-21] MEDS: PAROXETINE HCL 20 MG, PAROXETINE HCL 10 MG PO SCH (10:04)
[2020-08-21] MEDS ORDERED: ATORVASTATIN CA 40 MG TABLET (FP) ONE (19:07)
[2020-08-21] MEDS: THIAMINE HCL 100 MG TABLET (FP) PO SCH (21:03)
[2020-08-21] MEDS: traZODone HCL 50 MG TABLET (FP) PO SCH (21:03)
[2020-08-21] MEDS: METHOCARBAMOL 500 MG TABLET PO PRN (21:03)
[2020-08-21] MEDS: MIRTAZAPINE 15 MG TABLET (FP) PO SCH (21:03)
[2020-08-21] MEDS: ARIPiprazole 2 MG TABLET PO SCH (21:04)
[2020-08-21] MEDS: ATORVASTATIN CA 80 MG TABLET (FP) PO SCH (21:04)
[2020-08-21] MEDS: MELATONIN 5 MG TABLETS PO SCH (21:04)
[2020-08-21] MEDS ORDERED: metoPROLOL SUCCINATE 25 MG TAB.SR.24H (FP) PO SCH (22:00)
[2020-08-22] MEDS ORDERED: PT OWN MED DRAWER 7, Y5N ONE ×3 (04:11→20:06)
[2020-08-22] MEDS: ACETAMINOPHEN 325 MG TABLET (FP) PO PRN (06:50)
[2020-08-22] MEDS: NICOTINE 21 MG/24 HOURS TOPICAL PATCH TD SCH (09:41)
[2020-08-22] MEDS: NICOTINE POLACRILEX 2 MG GUM BC PRN ×3 (09:41→21:08)
[2020-08-22] MEDS: CLOPIDOGREL BISULFATE 75 MG TABLET (FP) PO SCH (09:42)
[2020-08-22] MEDS: PRENATAL VITAMINS W/ FOLIC ACID TABLET (FP) PO SCH (09:42)
[2020-08-22] MEDS: amLODIPine BESYLATE 10 MG TABLET (FP) PO SCH (09:42)
[2020-08-22] MEDS: PAROXETINE HCL 20 MG, PAROXETINE HCL 10 MG PO SCH (09:42)
[2020-08-22] MEDS ORDERED: ATORVASTATIN CA 40 MG TABLET (FP) ONE (19:43)
[2020-08-22] MEDS: ATORVASTATIN CA 80 MG TABLET (FP) PO SCH (21:02)
[2020-08-22] MEDS: ARIPiprazole 2 MG TABLET PO SCH (21:03)
[2020-08-22] MEDS: traZODone HCL 50 MG TABLET (FP) PO SCH (21:03)
[2020-08-22] MEDS: MIRTAZAPINE 15 MG TABLET (FP) PO SCH (21:03)
[2020-08-22] MEDS: THIAMINE HCL 100 MG TABLET (FP) PO SCH (21:04)
[2020-08-22] MEDS: MELATONIN 5 MG TABLETS PO SCH (21:04)
[2020-08-23] MEDS ORDERED: PT OWN MED DRAWER 7, Y5N ONE ×4 (03:10→21:12)
[2020-08-23] MEDS: NICOTINE 21 MG/24 HOURS TOPICAL PATCH TD SCH (09:54)
[2020-08-23] MEDS: PRENATAL VITAMINS W/ FOLIC ACID TABLET (FP) PO SCH (09:55)
[2020-08-23] MEDS: PAROXETINE HCL 20 MG, PAROXETINE HCL 10 MG PO SCH (09:55)
[2020-08-23] MEDS: CLOPIDOGREL BISULFATE 75 MG TABLET (FP) PO SCH (09:55)
[2020-08-23] MEDS: amLODIPine BESYLATE 10 MG TABLET (FP) PO SCH (09:55)
[2020-08-23] MEDS: NICOTINE POLACRILEX 2 MG GUM BC PRN ×2 (09:57→14:19)
[2020-08-23] MEDS ORDERED: MIRTAZAPINE 15 MG TABLET (FP) ONE (20:47)
[2020-08-23] MEDS ORDERED: ATORVASTATIN CA 40 MG TABLET (FP) ONE (20:47)
[2020-08-23] MEDS: THIAMINE HCL 100 MG TABLET (FP) PO SCH (21:09)
[2020-08-23] MEDS: traZODone HCL 50 MG TABLET (FP) PO SCH (21:10)
[2020-08-23] MEDS: MIRTAZAPINE 30 MG TABLET PO SCH (21:10)
[2020-08-23] MEDS: ATORVASTATIN CA 80 MG TABLET (FP) PO SCH (21:10)
[2020-08-23] MEDS: MELATONIN 5 MG TABLETS PO SCH (21:14)
[2020-08-23] MEDS: ARIPiprazole 2 MG TABLET PO SCH (21:14)
[2020-08-23] MEDS: METHOCARBAMOL 500 MG TABLET PO PRN (22:05)
[2020-08-24] MEDS ORDERED: PT OWN MED DRAWER 7, Y5N ONE ×2 (03:08→08:06)
[2020-08-24] MEDS: NICOTINE POLACRILEX 2 MG GUM BC PRN ×4 (06:39→21:50)
[2020-08-24] MEDS: NICOTINE 21 MG/24 HOURS TOPICAL PATCH TD SCH (09:10)
[2020-08-24] MEDS: amLODIPine BESYLATE 10 MG TABLET (FP) PO SCH (09:10)
[2020-08-24] MEDS: CLOPIDOGREL BISULFATE 75 MG TABLET (FP) PO SCH (09:11)
[2020-08-24] MEDS: PRENATAL VITAMINS W/ FOLIC ACID TABLET (FP) PO SCH (09:11)
[2020-08-24] MEDS: PAROXETINE HCL 20 MG, PAROXETINE HCL 10 MG PO SCH (09:11)
[2020-08-24] MEDS ORDERED: ATORVASTATIN CA 20 MG TABLET (FP) ONE (19:34)
[2020-08-24] MEDS ORDERED: MIRTAZAPINE 15 MG TABLET (FP) ONE (19:35)
[2020-08-24] MEDS: THIAMINE HCL 100 MG TABLET (FP) PO SCH (21:46)
[2020-08-24] MEDS: traZODone HCL 50 MG TABLET (FP) PO SCH (21:46)
[2020-08-24] MEDS: ARIPiprazole 2 MG TABLET PO SCH (21:47)
[2020-08-24] MEDS: ATORVASTATIN CA 80 MG TABLET (FP) PO SCH (21:47)
[2020-08-24] MEDS: MELATONIN 5 MG TABLETS PO SCH (21:47)
[2020-08-24] MEDS: MIRTAZAPINE 30 MG TABLET PO SCH (21:48)
[2020-08-24] MEDS: METHOCARBAMOL 500 MG TABLET PO PRN (21:49)
[2020-08-25] MEDS ORDERED: PT OWN MED DRAWER 7, Y5N ONE ×3 (03:14→10:28)
[2020-08-25] MEDS: NICOTINE POLACRILEX 2 MG GUM BC PRN ×3 (07:04→13:41)
[2020-08-25] MEDS: CLOPIDOGREL BISULFATE 75 MG TABLET (FP) PO SCH (10:19)
[2020-08-25] MEDS: amLODIPine BESYLATE 10 MG TABLET (FP) PO SCH (10:19)
[2020-08-25] MEDS: NICOTINE 21 MG/24 HOURS TOPICAL PATCH TD SCH (10:19)
[2020-08-25] MEDS: PAROXETINE HCL 20 MG, PAROXETINE HCL 10 MG PO SCH (10:20)
[2020-08-25] MEDS: PRENATAL VITAMINS W/ FOLIC ACID TABLET (FP) PO SCH (10:20)
[2020-08-25] MEDS ORDERED: MIRTAZAPINE 15 MG TABLET (FP) ONE (19:12)
[2020-08-25] MEDS ORDERED: ATORVASTATIN CA 40 MG TABLET (FP) ONE (19:13)
[2020-08-25] MEDS: THIAMINE HCL 100 MG TABLET (FP) PO SCH (21:16)
[2020-08-25] MEDS: MIRTAZAPINE 30 MG TABLET PO SCH (21:17)
[2020-08-25] MEDS: MELATONIN 5 MG TABLETS PO SCH (21:18)
[2020-08-25] MEDS: traZODone HCL 50 MG TABLET (FP) PO SCH (21:18)
[2020-08-25] MEDS: METHOCARBAMOL 500 MG TABLET PO PRN (21:18)
[2020-08-25] MEDS: ARIPiprazole 2 MG TABLET PO SCH (21:18)
[2020-08-25] MEDS: ATORVASTATIN CA 80 MG TABLET (FP) PO SCH (21:19)
[2020-08-25] MEDS: MICONAZOLE NITRATE 14 GM/TUBE TUBE TP SCH (21:19)
[2020-08-26] MEDS: NICOTINE POLACRILEX 2 MG GUM BC PRN ×3 (06:33→21:29)
[2020-08-26] MEDS: NICOTINE 21 MG/24 HOURS TOPICAL PATCH TD SCH (09:51)
[2020-08-26] MEDS: MICONAZOLE NITRATE 14 GM/TUBE TUBE TP SCH ×2 (09:51→21:26)
[2020-08-26] MEDS: amLODIPine BESYLATE 10 MG TABLET (FP) PO SCH (09:52)
[2020-08-26] MEDS: PAROXETINE HCL 20 MG, PAROXETINE HCL 10 MG PO SCH (09:53)
[2020-08-26] MEDS: CLOPIDOGREL BISULFATE 75 MG TABLET (FP) PO SCH (09:53)
[2020-08-26] MEDS: PRENATAL VITAMINS W/ FOLIC ACID TABLET (FP) PO SCH (09:53)
[2020-08-26] MEDS ORDERED: FLU VACCINE (FLULAVAL) PF 60 MCG/0.5 ML SYRINGE 2020-2021 IM ONE (12:00)
[2020-08-26] MEDS ORDERED: MIRTAZAPINE 15 MG TABLET (FP) ONE (18:53)
[2020-08-26] MEDS ORDERED: ATORVASTATIN CA 40 MG TABLET (FP) ONE (18:53)
[2020-08-26] MEDS: traZODone HCL 50 MG TABLET (FP) PO SCH (21:25)
[2020-08-26] MEDS: ARIPiprazole 2 MG TABLET PO SCH (21:25)
[2020-08-26] MEDS: THIAMINE HCL 100 MG TABLET (FP) PO SCH (21:25)
[2020-08-26] MEDS: ATORVASTATIN CA 80 MG TABLET (FP) PO SCH (21:26)
[2020-08-26] MEDS: MELATONIN 5 MG TABLETS PO SCH (21:26)
[2020-08-26] MEDS: MIRTAZAPINE 30 MG TABLET PO SCH (21:27)
[2020-08-27] MEDS: NICOTINE POLACRILEX 2 MG GUM BC PRN ×2 (07:00→19:32)
[2020-08-27] MEDS ORDERED: PT OWN MED DRAWER 7, Y5N ONE (08:45)
[2020-08-27] MEDS: MICONAZOLE NITRATE 14 GM/TUBE TUBE TP SCH ×2 (09:04→21:41)
[2020-08-27] MEDS: NICOTINE 21 MG/24 HOURS TOPICAL PATCH TD SCH (09:04)
[2020-08-27] MEDS: amLODIPine BESYLATE 10 MG TABLET (FP) PO SCH (09:05)
[2020-08-27] MEDS: CLOPIDOGREL BISULFATE 75 MG TABLET (FP) PO SCH (09:05)
[2020-08-27] MEDS: PAROXETINE HCL 20 MG, PAROXETINE HCL 10 MG PO SCH (09:05)
[2020-08-27] MEDS: PRENATAL VITAMINS W/ FOLIC ACID TABLET (FP) PO SCH (09:06)
[2020-08-27] MEDS ORDERED: MIRTAZAPINE 15 MG TABLET (FP) ONE (19:18)
[2020-08-27] MEDS ORDERED: ATORVASTATIN CA 40 MG TABLET (FP) ONE (19:18)
[2020-08-27] MEDS: THIAMINE HCL 100 MG TABLET (FP) PO SCH (21:38)
[2020-08-27] MEDS: traZODone HCL 50 MG TABLET (FP) PO SCH (21:38)
[2020-08-27] MEDS: ARIPiprazole 2 MG TABLET PO SCH (21:40)
[2020-08-27] MEDS: ATORVASTATIN CA 80 MG TABLET (FP) PO SCH (21:40)
[2020-08-27] MEDS: MELATONIN 5 MG TABLETS PO SCH (21:40)
[2020-08-27] MEDS: MIRTAZAPINE 30 MG TABLET PO SCH (21:41)
[2020-08-28] MEDS: NICOTINE POLACRILEX 2 MG GUM BC PRN ×4 (07:10→21:26)
[2020-08-28] MEDS: MICONAZOLE NITRATE 14 GM/TUBE TUBE TP SCH ×2 (10:01→21:23)
[2020-08-28] MEDS: NICOTINE 21 MG/24 HOURS TOPICAL PATCH TD SCH (10:01)
[2020-08-28] MEDS: PRENATAL VITAMINS W/ FOLIC ACID TABLET (FP) PO SCH (10:02)
[2020-08-28] MEDS: amLODIPine BESYLATE 10 MG TABLET (FP) PO SCH (10:02)
[2020-08-28] MEDS: CLOPIDOGREL BISULFATE 75 MG TABLET (FP) PO SCH (10:03)
[2020-08-28] MEDS: PAROXETINE HCL 20 MG, PAROXETINE HCL 10 MG PO SCH (10:03)
[2020-08-28] MEDS ORDERED: ATORVASTATIN CA 40 MG TABLET (FP) ONE (19:22)
[2020-08-28] MEDS ORDERED: MIRTAZAPINE 15 MG TABLET (FP) ONE (19:22)
[2020-08-28 20:01] LABS: EPI CELLS 21 /uL (0-25.1); HYALINE CASTS 0 /uL (0-3.1); PH,URINE 7.5 (5.0-8.0); URINE APPEARANCE CLOUDY; URINE BACTERIA 36 /uL (0-1359); URINE BILIRUBIN NEGATIVE (NEGATIVE); URINE COLOR YELLOW; URINE GLUCOSE (UA) NEGATIVE (NEGATIVE); URINE KETONE NEGATIVE (NEGATIVE); URINE LEUK ESTERASE 2+ (NEGATIVE); URINE NITRITE NEGATIVE (NEGATIVE); URINE PROTEIN NEGATIVE (NEGATIVE); URINE RBC 3 /uL (0-23.9); URINE UROBILINOGEN 0.2 mg/dL (0.2-1.0); URINE WBC 19 /uL (0-25.8)
[2020-08-28] MEDS: traZODone HCL 50 MG TABLET (FP) PO SCH (21:22)
[2020-08-28] MEDS: THIAMINE HCL 100 MG TABLET (FP) PO SCH (21:22)
[2020-08-28] MEDS: MELATONIN 5 MG TABLETS PO SCH (21:23)
[2020-08-28] MEDS: MIRTAZAPINE 30 MG TABLET PO SCH (21:23)
[2020-08-28] MEDS: ARIPiprazole 2 MG TABLET PO SCH (21:23)
[2020-08-28] MEDS: ATORVASTATIN CA 80 MG TABLET (FP) PO SCH (21:23)
[2020-08-29] MEDS: METHOCARBAMOL 500 MG TABLET PO PRN ×2 (03:23→21:58)
[2020-08-29] MEDS: NICOTINE POLACRILEX 2 MG GUM BC PRN ×5 (06:59→16:49)
[2020-08-29] MEDS: ACETAMINOPHEN 325 MG TABLET (FP) PO PRN ×2 (07:01→14:16)
[2020-08-29] MEDS ORDERED: PT OWN MED DRAWER 7, Y5N ONE ×3 (08:30→19:50)
[2020-08-29] MEDS: MICONAZOLE NITRATE 14 GM/TUBE TUBE TP SCH ×2 (09:02→21:55)
[2020-08-29] MEDS: PAROXETINE HCL 20 MG, PAROXETINE HCL 10 MG PO SCH (09:03)
[2020-08-29] MEDS: amLODIPine BESYLATE 10 MG TABLET (FP) PO SCH (09:03)
[2020-08-29] MEDS: NICOTINE 21 MG/24 HOURS TOPICAL PATCH TD SCH (09:03)
[2020-08-29] MEDS: PRENATAL VITAMINS W/ FOLIC ACID TABLET (FP) PO SCH (09:04)
[2020-08-29] MEDS: CLOPIDOGREL BISULFATE 75 MG TABLET (FP) PO SCH (09:04)
[2020-08-29] MEDS ORDERED: MIRTAZAPINE 15 MG TABLET (FP) ONE (19:47)
[2020-08-29] MEDS ORDERED: ATORVASTATIN CA 40 MG TABLET (FP) ONE (19:48)
[2020-08-29] MEDS: ARIPiprazole 2 MG TABLET PO SCH (21:53)
[2020-08-29] MEDS: THIAMINE HCL 100 MG TABLET (FP) PO SCH (21:53)
[2020-08-29] MEDS: traZODone HCL 50 MG TABLET (FP) PO SCH (21:54)
[2020-08-29] MEDS: MELATONIN 5 MG TABLETS PO SCH (21:54)
[2020-08-29] MEDS: ATORVASTATIN CA 80 MG TABLET (FP) PO SCH (21:55)
[2020-08-29] MEDS: MIRTAZAPINE 30 MG TABLET PO SCH (21:55)
[2020-08-30] MEDS ORDERED: PT OWN MED DRAWER 7, Y5N ONE (05:26)
[2020-08-30] MEDS: NICOTINE POLACRILEX 2 MG GUM BC PRN ×4 (06:51→18:50)
[2020-08-30] MEDS: ACETAMINOPHEN 325 MG TABLET (FP) PO PRN (07:52)
[2020-08-30] MEDS: NICOTINE 21 MG/24 HOURS TOPICAL PATCH TD SCH (10:02)
[2020-08-30] MEDS: amLODIPine BESYLATE 10 MG TABLET (FP) PO SCH (10:02)
[2020-08-30] MEDS: PAROXETINE HCL 20 MG, PAROXETINE HCL 10 MG PO SCH (10:03)
[2020-08-30] MEDS: PRENATAL VITAMINS W/ FOLIC ACID TABLET (FP) PO SCH (10:03)
[2020-08-30] MEDS: CLOPIDOGREL BISULFATE 75 MG TABLET (FP) PO SCH (10:03)
[2020-08-30] MEDS: MICONAZOLE NITRATE 14 GM/TUBE TUBE TP SCH ×2 (10:04→21:30)
[2020-08-30] MEDS ORDERED: ATORVASTATIN CA 40 MG TABLET (FP) ONE (19:06)
[2020-08-30] MEDS ORDERED: MIRTAZAPINE 15 MG TABLET (FP) ONE (19:06)
[2020-08-30] MEDS: THIAMINE HCL 100 MG TABLET (FP) PO SCH (21:28)
[2020-08-30] MEDS: METHOCARBAMOL 500 MG TABLET PO PRN (21:29)
[2020-08-30] MEDS: ATORVASTATIN CA 80 MG TABLET (FP) PO SCH (21:30)
[2020-08-30] MEDS: traZODone HCL 50 MG TABLET (FP) PO SCH (21:30)
[2020-08-30] MEDS: MIRTAZAPINE 30 MG TABLET PO SCH (21:30)
[2020-08-30] MEDS: MELATONIN 5 MG TABLETS PO SCH (21:31)
[2020-08-30] MEDS: ARIPiprazole 2 MG TABLET PO SCH (21:31)
[2020-08-31] MEDS: ACETAMINOPHEN 325 MG TABLET (FP) PO PRN ×3 (00:57→15:38)
[2020-08-31] MEDS: NICOTINE POLACRILEX 2 MG GUM BC PRN ×5 (00:59→15:38)
[2020-08-31] MEDS: CLOPIDOGREL BISULFATE 75 MG TABLET (FP) PO SCH (09:41)
[2020-08-31] MEDS: PAROXETINE HCL 20 MG, PAROXETINE HCL 10 MG PO SCH (09:41)
[2020-08-31] MEDS: amLODIPine BESYLATE 10 MG TABLET (FP) PO SCH (09:41)
[2020-08-31] MEDS: NICOTINE 21 MG/24 HOURS TOPICAL PATCH TD SCH (09:41)
[2020-08-31] MEDS: PRENATAL VITAMINS W/ FOLIC ACID TABLET (FP) PO SCH (09:41)
[2020-08-31] MEDS: MICONAZOLE NITRATE 14 GM/TUBE TUBE TP SCH ×2 (09:42→21:31)
[2020-08-31] MEDS ORDERED: ATORVASTATIN CA 40 MG TABLET (FP) ONE (19:25)
[2020-08-31] MEDS ORDERED: MIRTAZAPINE 15 MG TABLET (FP) ONE (19:25)
[2020-08-31] MEDS: METHOCARBAMOL 500 MG TABLET PO PRN (21:30)
[2020-08-31] MEDS: traZODone HCL 50 MG TABLET (FP) PO SCH (21:30)
[2020-08-31] MEDS: ATORVASTATIN CA 80 MG TABLET (FP) PO SCH (21:31)
[2020-08-31] MEDS: MELATONIN 5 MG TABLETS PO SCH (21:31)
[2020-08-31] MEDS: MIRTAZAPINE 30 MG TABLET PO SCH (21:31)
[2020-08-31] MEDS: ARIPiprazole 2 MG TABLET PO SCH (21:31)
[2020-08-31] MEDS: THIAMINE HCL 100 MG TABLET (FP) PO SCH (23:02)
[2020-09-01] MEDS: ACETAMINOPHEN 325 MG TABLET (FP) PO PRN (07:08)
[2020-09-01 07:18] VITALS: BP 145/94; PULSE 61; TEMP 97.3
[2020-09-01] MEDS ORDERED: PT OWN MED DRAWER 7, Y5N ONE (08:28)
[2020-09-01] MEDS: amLODIPine BESYLATE 10 MG TABLET (FP) PO SCH (09:02)
[2020-09-01] MEDS: PAROXETINE HCL 20 MG, PAROXETINE HCL 10 MG PO SCH (09:02)
[2020-09-01] MEDS: CLOPIDOGREL BISULFATE 75 MG TABLET (FP) PO SCH (09:02)
[2020-09-01] MEDS: NICOTINE 21 MG/24 HOURS TOPICAL PATCH TD SCH (09:03)
[2020-09-01] MEDS: PRENATAL VITAMINS W/ FOLIC ACID TABLET (FP) PO SCH (09:03)
[2020-09-01] MEDS: MICONAZOLE NITRATE 14 GM/TUBE TUBE TP SCH (09:04)
== END 2020-09-01 09:12 | disposition home or self-care (01) | DRG 895 ==
LOC: YASAS 12:30 → Y3E 17:32
PROVIDERS: ADMIT Allergy & Immunology; ATTEND Allergy & Immunology
PROC: HZ42ZZZ Group Counseling for Substance Abuse Treatment, Cognitive-Behavioral (ICD-10-PCS; principal; 2020-08-18)
DX: F10.20 Alcohol dependence, uncomplicated (principal); F14.20 Cocaine dependence, uncomplicated; F19.20 Other psychoactive substance dependence, uncomplicated; G40.509 Epileptic seizures related to external causes, not intractable, without status epilepticus; F12.20 Cannabis dependence, uncomplicated; F17.210 Nicotine dependence, cigarettes, uncomplicated; D50.9 Iron deficiency anemia, unspecified; G47.00 Insomnia, unspecified; I25.10 Atherosclerotic heart disease of native coronary artery without angina pectoris; I10 Essential (primary) hypertension; Z95.5 Presence of coronary angioplasty implant and graft; Z95.820 Peripheral vascular angioplasty status with implants and grafts; L29.2 Pruritus vulvae; R76.11 Nonspecific reaction to tuberculin skin test without active tuberculosis; Z99.89 Dependence on other enabling machines and devices; Z88.5 Allergy status to narcotic agent; Z88.8 Allergy status to other drugs, medicaments and biological substances; Z86.19 Personal history of other infectious and parasitic diseases; Z87.440 Personal history of urinary (tract) infections; Z91.5 Personal history of self-harm
CPT/HCPCS: 36415; 71046-TC-FY; 80053; 81003; 82962; 85027; 85660; 86780; 87086; 87389; 93005; 93010; Q0162; Q2036; U0003

== ENCOUNTER 2021-10-20 15:41 | Inpatient (IN) | payer OTHER ==
[2021-10-20] MEDS ORDERED: ONDANSETRON *ODT* 4 MG TABLET SL PRN (18:49)
[2021-10-20] MEDS ORDERED: IBUPROFEN 400 MG TABLET (FP) PO PRN (18:49)
[2021-10-20] MEDS ORDERED: MAGNESIUM CITRATE 300 ML BOTTLE PO PRN (18:49)
[2021-10-20] MEDS ORDERED: MAG HYDROX/AL HYDROX/SIMETH 30 ML UNIT-DOSE CUP PO PRN (18:49)
[2021-10-20] MEDS ORDERED: MENTHOL/PHENOL 1 EACH UD MM PRN (18:49)
[2021-10-20] MEDS ORDERED: diazePAM 5 MG TABLET PO ONE (18:49)
[2021-10-20] MEDS ORDERED: MAGNESIUM HYDROX 2400MG/30ML ORAL SUSPENSION 30 ML CUP PO PRN (18:49)
[2021-10-20] MEDS ORDERED: BISMUTH SUBSALICYLATE 524 MG/30 ML PO PRN (18:49)
[2021-10-20] MEDS ORDERED: ACETAMINOPHEN 325 MG TABLET (FP) PO PRN ×2 (18:49)
[2021-10-20] MEDS ORDERED: NICOTINE 10 MG CARTRIDGE (INHALER) IH PRN (18:49)
[2021-10-20 20:00] VITALS: BMI 22.2
[2021-10-20] MEDS: amLODIPine BESYLATE 10 MG TABLET (FP) PO SCH (20:49)
[2021-10-20] MEDS: hydrOXYzine PAMOATE 25 MG CAPSULE (FP) PO SCH (23:02)
[2021-10-20] MEDS: THIAMINE HCL 100 MG TABLET (FP) PO SCH (23:02)
[2021-10-20] MEDS: MELATONIN 5 MG TABLETS PO SCH (23:02)
[2021-10-20] MEDS: ATORVASTATIN CA 80 MG TABLET (FP) PO SCH (23:02)
[2021-10-20] MEDS: diazePAM 5 MG TABLET PO SCH (23:03)
[2021-10-20] MEDS: METHOCARBAMOL 500 MG TABLET PO PRN (23:04)
[2021-10-21] MEDS: hydrOXYzine PAMOATE 25 MG CAPSULE (FP) PO SCH ×5 (06:29→22:40)
[2021-10-21] MEDS: diazePAM 5 MG TABLET PO SCH ×4 (06:30→22:40)
[2021-10-21] MEDS: INSULIN SLIDING SCALE (NOVOLOG) 1 VIAL SQ SCH (06:58)
[2021-10-21] MEDS: metFORMIN HCL 500 MG TABLET (FP) PO SCH ×2 (07:48→18:00)
[2021-10-21] MEDS: PRENATAL VITAMINS W/ FOLIC ACID TABLET (FP) PO SCH (11:05)
[2021-10-21] MEDS: NICOTINE 21 MG/24 HOURS TOPICAL PATCH TD SCH (11:05)
[2021-10-21] MEDS: CLOPIDOGREL BISULFATE 75 MG TABLET (FP) PO SCH (11:06)
[2021-10-21] MEDS: ASPIRIN COATED 81 MG TABLET.EC PO SCH (11:06)
[2021-10-21] MEDS: amLODIPine BESYLATE 10 MG TABLET (FP) PO SCH (11:06)
[2021-10-21 12:14] LABS: HEMATOCRIT 41.1 % (32.4-45.2); HEMOGLOBIN 13.1 GM/dL (10.7-15.3); MCH 27.8 pg (25.7-33.7); MEAN CELL VOLUME 87.1 fl (80-96); MEAN PLT VOLUME 9.7 fl (7.5-11.1); PLATELET COUNT 99 10^3/uL (134-434); RBC 4.72 M/mm3 (3.60-5.2); RDW 17.5 % (11.6-15.6); WHITE BLOOD COUNT 8.4 K/mm3 (4.0-10.0)
[2021-10-21 12:46] LABS: CALCIUM 8.9 mg/dL (8.5-10.1)
[2021-10-21 12:47] LABS: BLOOD UREA NITROGEN 26.3 mg/dL (7-18)
[2021-10-21 12:48] LABS: BILIRUBIN,TOTAL 0.3 mg/dL (0.2-1)
[2021-10-21 12:51] LABS: TOT PROT 6.3 g/dl (6.4-8.2)
[2021-10-21] MEDS: MELATONIN 5 MG TABLETS PO SCH (22:40)
[2021-10-21] MEDS: THIAMINE HCL 100 MG TABLET (FP) PO SCH (22:40)
[2021-10-21] MEDS: ATORVASTATIN CA 80 MG TABLET (FP) PO SCH (22:40)
[2021-10-21] MEDS: traZODone HCL 50 MG TABLET (FP) PO SCH (22:40)
[2021-10-21] MEDS: METHOCARBAMOL 500 MG TABLET PO PRN (22:41)
[2021-10-21] MEDS: ARIPiprazole 2 MG TABLET PO SCH (23:18)
[2021-10-22] MEDS: hydrOXYzine PAMOATE 25 MG CAPSULE (FP) PO SCH ×5 (06:13→22:27)
[2021-10-22] MEDS: diazePAM 5 MG TABLET PO SCH ×3 (06:14→22:27)
[2021-10-22] MEDS: INSULIN SLIDING SCALE (NOVOLOG) 1 VIAL SQ SCH (06:22)
[2021-10-22] MEDS: metFORMIN HCL 500 MG TABLET (FP) PO SCH ×2 (07:29→17:39)
[2021-10-22] MEDS: ASPIRIN COATED 81 MG TABLET.EC PO SCH (10:22)
[2021-10-22] MEDS: diazePAM 5 MG TABLET PO PRN ×2 (10:23→17:41)
[2021-10-22] MEDS: PRENATAL VITAMINS W/ FOLIC ACID TABLET (FP) PO SCH (10:23)
[2021-10-22] MEDS: amLODIPine BESYLATE 10 MG TABLET (FP) PO SCH (10:23)
[2021-10-22] MEDS: CLOPIDOGREL BISULFATE 75 MG TABLET (FP) PO SCH (10:23)
[2021-10-22] MEDS: NICOTINE 21 MG/24 HOURS TOPICAL PATCH TD SCH (10:24)
[2021-10-22 14:08] LABS: CHLORIDE 115 mmol/L (98-107); SODIUM 142 mmol/L (136-145)
[2021-10-22 14:11] LABS: GLUCOSE,RANDOM 73 mg/dL (74-106)
[2021-10-22 14:12] LABS: BLOOD UREA NITROGEN 22.9 mg/dL (7-18); CO2 16 mmol/L (21-32)
[2021-10-22 14:15] LABS: CREATININE 1.9 mg/dL (0.55-1.3)
[2021-10-22 16:33] LABS: ANION GAP 11 MMOL/L (8-16)
[2021-10-22] MEDS: ARIPiprazole 2 MG TABLET PO SCH (22:26)
[2021-10-22] MEDS: MELATONIN 5 MG TABLETS PO SCH (22:26)
[2021-10-22] MEDS: THIAMINE HCL 100 MG TABLET (FP) PO SCH (22:27)
[2021-10-22] MEDS: ATORVASTATIN CA 80 MG TABLET (FP) PO SCH (22:27)
[2021-10-22] MEDS: traZODone HCL 50 MG TABLET (FP) PO SCH (22:27)
[2021-10-23] MEDS ORDERED: diazePAM 5 MG TABLET PO SCH (06:00)
[2021-10-23] MEDS: hydrOXYzine PAMOATE 25 MG CAPSULE (FP) PO SCH ×3 (06:03→14:11)
[2021-10-23] MEDS: INSULIN SLIDING SCALE (NOVOLOG) 1 VIAL SQ SCH (06:19)
[2021-10-23] MEDS: metFORMIN HCL 500 MG TABLET (FP) PO SCH ×2 (08:03→08:17)
[2021-10-23] MEDS: CLOPIDOGREL BISULFATE 75 MG TABLET (FP) PO SCH (11:02)
[2021-10-23] MEDS: ASPIRIN COATED 81 MG TABLET.EC PO SCH (11:02)
[2021-10-23] MEDS: amLODIPine BESYLATE 10 MG TABLET (FP) PO SCH (11:02)
[2021-10-23] MEDS: PRENATAL VITAMINS W/ FOLIC ACID TABLET (FP) PO SCH (11:07)
[2021-10-23] MEDS: NICOTINE 21 MG/24 HOURS TOPICAL PATCH TD SCH (11:07)
[2021-10-23 13:16] VITALS: BP 115/75; PULSE 84; TEMP 98.2
[2021-10-23] MEDS ORDERED: MIRTAZAPINE 15 MG TABLET (FP) PO SCH (22:00)
[2021-10-24] MEDS ORDERED: diazePAM 5 MG TABLET PO ONE (06:00)
[2021-10-24] MEDS ORDERED: ARIPiprazole 5 MG TABLET PO SCH (10:00)
== END 2021-10-23 16:23 | DRG 897 ==
LOC: YASAS 15:41 → Y3N 20:15
PROVIDERS: ADMIT Allergy & Immunology; ATTEND Allergy & Immunology
PROC: HZ2ZZZZ Detoxification Services for Substance Abuse Treatment (ICD-10-PCS; principal; 2021-10-20)
DX: F10.230 Alcohol dependence with withdrawal, uncomplicated (principal); F14.20 Cocaine dependence, uncomplicated; F12.20 Cannabis dependence, uncomplicated; F17.210 Nicotine dependence, cigarettes, uncomplicated; F19.24 Other psychoactive substance dependence with psychoactive substance-induced mood disorder; I10 Essential (primary) hypertension; I25.10 Atherosclerotic heart disease of native coronary artery without angina pectoris; E78.5 Hyperlipidemia, unspecified; E11.9 Type 2 diabetes mellitus without complications; R76.8 Other specified abnormal immunological findings in serum; R45.81 Low self-esteem; G47.00 Insomnia, unspecified; D69.6 Thrombocytopenia, unspecified; R79.89 Other specified abnormal findings of blood chemistry; M19.90 Unspecified osteoarthritis, unspecified site; R26.2 Difficulty in walking, not elsewhere classified; Z99.89 Dependence on other enabling machines and devices; Z88.5 Allergy status to narcotic agent; Z86.19 Personal history of other infectious and parasitic diseases; Z95.5 Presence of coronary angioplasty implant and graft; Z79.02 Long term (current) use of antithrombotics/antiplatelets; Z79.84 Long term (current) use of oral hypoglycemic drugs; Z86.69 Personal history of other diseases of the nervous system and sense organs
CPT/HCPCS: 36415; 80048; 80053; 82550; 82962; 83036; 84132; 84484; 85027; 86780; C9803; U0003; U0005

== ENCOUNTER 2022-06-14 10:46 | Inpatient (IN) | payer OTHER ==
[2022-06-14 13:07] VITALS: BMI 25.8
[2022-06-14] MEDS ORDERED: BISMUTH SUBSALICYLATE 524 MG/30 ML PO PRN (15:08)
[2022-06-14] MEDS ORDERED: ONDANSETRON *ODT* 4 MG TABLET SL PRN (15:08)
[2022-06-14] MEDS ORDERED: IBUPROFEN 400 MG TABLET (FP) PO PRN (15:08)
[2022-06-14] MEDS ORDERED: chlordiazePOXIDE HCL 25 MG CAPSULE PO PRN (15:08)
[2022-06-14] MEDS ORDERED: MAGNESIUM CITRATE 300 ML BOTTLE PO PRN (15:08)
[2022-06-14] MEDS ORDERED: MAGNESIUM HYDROX 2400MG/30ML ORAL SUSPENSION 30 ML CUP PO PRN (15:08)
[2022-06-14] MEDS ORDERED: BENZOCAINE/MENTHOL (CHLORASEPTIC ) LOZENGE MM PRN (15:08)
[2022-06-14] MEDS ORDERED: IBUPROFEN 600 MG TABLET (FP) PO PRN (15:08)
[2022-06-14] MEDS ORDERED: DICYCLOMINE HCL 10 MG CAPSULE PO PRN (15:08)
[2022-06-14] MEDS ORDERED: MAG HYDROX/AL HYDROX/SIMETH 30 ML UNIT-DOSE CUP PO PRN (15:08)
[2022-06-14] MEDS ORDERED: NICOTINE POLACRILEX 4 MG GUM BUC PRN (15:08)
[2022-06-14] MEDS ORDERED: LOPERAMIDE HCL 2 MG CAPSULE PO PRN (15:08)
[2022-06-14] MEDS ORDERED: ACETAMINOPHEN 325 MG TABLET (FP) PO PRN ×2 (15:08)
[2022-06-14] MEDS ORDERED: NICOTINE 10 MG CARTRIDGE (INHALER) IH PRN (15:08)
[2022-06-14] MEDS: metoPROLOL SUCCINATE 25 MG TAB.SR.24H (FP) PO SCH (17:32)
[2022-06-14] MEDS: chlordiazePOXIDE HCL 25 MG CAPSULE PO SCH ×2 (17:33→22:31)
[2022-06-14] MEDS: CLOPIDOGREL BISULFATE 75 MG TABLET (FP) PO SCH (17:33)
[2022-06-14] MEDS: amLODIPine BESYLATE 10 MG TABLET (FP) PO SCH (17:33)
[2022-06-14] MEDS: PRENATAL VITAMINS W/ FOLIC ACID TABLET (FP) PO SCH (17:34)
[2022-06-14] MEDS: NICOTINE 21 MG/24 HOURS TOPICAL PATCH TD SCH (17:34)
[2022-06-14] MEDS: THIAMINE HCL 100 MG TABLET (FP) PO SCH (22:31)
[2022-06-14] MEDS: ATORVASTATIN CA 80 MG TABLET (FP) PO SCH (22:31)
[2022-06-14] MEDS: MELATONIN 5 MG TABLETS PO SCH (22:31)
[2022-06-15] MEDS: chlordiazePOXIDE HCL 25 MG CAPSULE PO SCH ×4 (06:32→22:23)
[2022-06-15] MEDS: NICOTINE 21 MG/24 HOURS TOPICAL PATCH TD SCH (10:37)
[2022-06-15] MEDS: amLODIPine BESYLATE 10 MG TABLET (FP) PO SCH (10:38)
[2022-06-15] MEDS: CLOPIDOGREL BISULFATE 75 MG TABLET (FP) PO SCH (10:38)
[2022-06-15] MEDS: METHOCARBAMOL 500 MG TABLET PO PRN (10:38)
[2022-06-15] MEDS: PRENATAL VITAMINS W/ FOLIC ACID TABLET (FP) PO SCH (10:38)
[2022-06-15] MEDS: metoPROLOL SUCCINATE 25 MG TAB.SR.24H (FP) PO SCH (10:40)
[2022-06-15 12:36] LABS: HEMATOCRIT 37.7 % (32.4-45.2); HEMOGLOBIN 12.1 GM/dL (10.7-15.3); MCH 27.2 pg (25.7-33.7); MCHC 32.1 g/dl (32.0-36.0); MEAN CELL VOLUME 84.7 fl (80-96); MEAN PLT VOLUME 9.7 fl (7.5-11.1); PLATELET COUNT 144 10^3/uL (134-434); RBC 4.45 M/mm3 (3.60-5.2); RDW 14.9 % (11.6-15.6); WHITE BLOOD COUNT 6.9 K/mm3 (4.0-10.0)
[2022-06-15 12:59] LABS: ALBUMIN 3.2 g/dl (3.4-5.0); BILIRUBIN,TOTAL 0.2 mg/dL (0.2-1); CALCIUM 8.9 mg/dL (8.5-10.1); CREATININE 1.8 mg/dL (0.55-1.3); TOT PROT 6.5 g/dl (6.4-8.2)
[2022-06-15] MEDS: hydrOXYzine PAMOATE 25 MG CAPSULE (FP) PO PRN (17:33)
[2022-06-15] MEDS: THIAMINE HCL 100 MG TABLET (FP) PO SCH (22:21)
[2022-06-15] MEDS: MELATONIN 5 MG TABLETS PO SCH (22:21)
[2022-06-15] MEDS: ATORVASTATIN CA 80 MG TABLET (FP) PO SCH (22:22)
[2022-06-15] MEDS: traZODone HCL 50 MG TABLET (FP) PO SCH (22:22)
[2022-06-16] MEDS: hydrOXYzine PAMOATE 25 MG CAPSULE (FP) PO PRN ×3 (05:58→23:15)
[2022-06-16] MEDS: chlordiazePOXIDE HCL 25 MG CAPSULE PO SCH ×4 (05:58→23:15)
[2022-06-16] MEDS: amLODIPine BESYLATE 10 MG TABLET (FP) PO SCH (10:24)
[2022-06-16] MEDS: CLOPIDOGREL BISULFATE 75 MG TABLET (FP) PO SCH (10:24)
[2022-06-16] MEDS: PRENATAL VITAMINS W/ FOLIC ACID TABLET (FP) PO SCH (10:24)
[2022-06-16] MEDS: NICOTINE 21 MG/24 HOURS TOPICAL PATCH TD SCH (10:25)
[2022-06-16] MEDS: metoPROLOL SUCCINATE 25 MG TAB.SR.24H (FP) PO SCH (11:14)
[2022-06-16 11:17] LABS: BLOOD UREA NITROGEN 30.9 mg/dL (7-18)
[2022-06-16 11:21] LABS: CREATININE 1.6 mg/dL (0.55-1.3)
[2022-06-16] MEDS: traZODone HCL 50 MG TABLET (FP) PO SCH (23:14)
[2022-06-16] MEDS: ATORVASTATIN CA 80 MG TABLET (FP) PO SCH (23:14)
[2022-06-16] MEDS: THIAMINE HCL 100 MG TABLET (FP) PO SCH (23:15)
[2022-06-17] MEDS ORDERED: chlordiazePOXIDE HCL 10 MG CAPSULE PO PRN
[2022-06-17] MEDS: MELATONIN 5 MG TABLETS PO SCH ×2 (00:06→22:26)
[2022-06-17] MEDS: chlordiazePOXIDE HCL 10 MG CAPSULE PO SCH ×4 (06:15→22:27)
[2022-06-17] MEDS: amLODIPine BESYLATE 10 MG TABLET (FP) PO SCH (11:55)
[2022-06-17] MEDS: CLOPIDOGREL BISULFATE 75 MG TABLET (FP) PO SCH (11:55)
[2022-06-17] MEDS: PRENATAL VITAMINS W/ FOLIC ACID TABLET (FP) PO SCH (11:55)
[2022-06-17] MEDS: metoPROLOL SUCCINATE 25 MG TAB.SR.24H (FP) PO SCH (11:57)
[2022-06-17] MEDS: NICOTINE 21 MG/24 HOURS TOPICAL PATCH TD SCH (11:57)
[2022-06-17] MEDS: hydrOXYzine PAMOATE 25 MG CAPSULE (FP) PO PRN ×2 (18:18→22:28)
[2022-06-17] MEDS: traZODone HCL 50 MG TABLET (FP) PO SCH (22:27)
[2022-06-17] MEDS: THIAMINE HCL 100 MG TABLET (FP) PO SCH (22:27)
[2022-06-17] MEDS: ATORVASTATIN CA 80 MG TABLET (FP) PO SCH (22:27)
[2022-06-18] MEDS: chlordiazePOXIDE HCL 10 MG CAPSULE PO SCH ×2 (06:33→18:24)
[2022-06-18] MEDS: PRENATAL VITAMINS W/ FOLIC ACID TABLET (FP) PO SCH (10:59)
[2022-06-18] MEDS: amLODIPine BESYLATE 10 MG TABLET (FP) PO SCH (10:59)
[2022-06-18] MEDS: CLOPIDOGREL BISULFATE 75 MG TABLET (FP) PO SCH (10:59)
[2022-06-18] MEDS: hydrOXYzine PAMOATE 25 MG CAPSULE (FP) PO PRN ×2 (11:02→23:20)
[2022-06-18] MEDS: NICOTINE 21 MG/24 HOURS TOPICAL PATCH TD SCH (12:06)
[2022-06-18] MEDS: metoPROLOL SUCCINATE 25 MG TAB.SR.24H (FP) PO SCH (13:39)
[2022-06-18] MEDS: METHOCARBAMOL 500 MG TABLET PO PRN (18:24)
[2022-06-18] MEDS: traZODone HCL 50 MG TABLET (FP) PO SCH (23:20)
[2022-06-18] MEDS: ATORVASTATIN CA 80 MG TABLET (FP) PO SCH (23:20)
[2022-06-18] MEDS: MELATONIN 5 MG TABLETS PO SCH (23:20)
[2022-06-18] MEDS: THIAMINE HCL 100 MG TABLET (FP) PO SCH (23:20)
[2022-06-19] MEDS ORDERED: chlordiazePOXIDE HCL 10 MG CAPSULE PO ONE (05:00)
[2022-06-19] MEDS: NICOTINE 21 MG/24 HOURS TOPICAL PATCH TD SCH (10:09)
[2022-06-19] MEDS: amLODIPine BESYLATE 10 MG TABLET (FP) PO SCH (10:09)
[2022-06-19] MEDS: metoPROLOL SUCCINATE 25 MG TAB.SR.24H (FP) PO SCH (10:09)
[2022-06-19] MEDS: CLOPIDOGREL BISULFATE 75 MG TABLET (FP) PO SCH (10:09)
[2022-06-19] MEDS: PRENATAL VITAMINS W/ FOLIC ACID TABLET (FP) PO SCH (10:09)
[2022-06-19] MEDS: ATORVASTATIN CA 80 MG TABLET (FP) PO SCH (23:13)
[2022-06-19] MEDS: THIAMINE HCL 100 MG TABLET (FP) PO SCH (23:14)
[2022-06-19] MEDS: traZODone HCL 50 MG TABLET (FP) PO SCH (23:14)
[2022-06-19] MEDS: MELATONIN 5 MG TABLETS PO SCH (23:15)
[2022-06-20] MEDS: metoPROLOL SUCCINATE 25 MG TAB.SR.24H (FP) PO SCH (10:40)
[2022-06-20] MEDS: hydrOXYzine PAMOATE 25 MG CAPSULE (FP) PO PRN (10:40)
[2022-06-20] MEDS: CLOPIDOGREL BISULFATE 75 MG TABLET (FP) PO SCH (10:40)
[2022-06-20] MEDS: NICOTINE 21 MG/24 HOURS TOPICAL PATCH TD SCH (10:40)
[2022-06-20] MEDS: amLODIPine BESYLATE 10 MG TABLET (FP) PO SCH (10:40)
[2022-06-20] MEDS: PRENATAL VITAMINS W/ FOLIC ACID TABLET (FP) PO SCH (10:40)
[2022-06-20] MEDS: traZODone HCL 50 MG TABLET (FP) PO SCH (22:37)
[2022-06-20] MEDS: ATORVASTATIN CA 80 MG TABLET (FP) PO SCH (22:37)
[2022-06-20] MEDS: THIAMINE HCL 100 MG TABLET (FP) PO SCH (22:38)
[2022-06-20] MEDS: MELATONIN 5 MG TABLETS PO SCH (22:44)
[2022-06-21] MEDS: NICOTINE 21 MG/24 HOURS TOPICAL PATCH TD SCH (10:21)
[2022-06-21] MEDS: PRENATAL VITAMINS W/ FOLIC ACID TABLET (FP) PO SCH (10:21)
[2022-06-21] MEDS: CLOPIDOGREL BISULFATE 75 MG TABLET (FP) PO SCH (10:21)
[2022-06-21] MEDS: metoPROLOL SUCCINATE 25 MG TAB.SR.24H (FP) PO SCH (10:21)
[2022-06-21] MEDS: amLODIPine BESYLATE 10 MG TABLET (FP) PO SCH (12:06)
[2022-06-21 13:25] VITALS: BP 151/86; PULSE 75; RESP 17; TEMP 98.1
== END 2022-06-21 13:47 | disposition home or self-care (01) | DRG 897 ==
LOC: YASAS 10:46 → Y6N 15:49
PROVIDERS: ADMIT Allergy & Immunology; ATTEND Surgery
PROC: HZ2ZZZZ Detoxification Services for Substance Abuse Treatment (ICD-10-PCS; principal; 2022-06-14)
DX: F10.230 Alcohol dependence with withdrawal, uncomplicated (principal); F14.20 Cocaine dependence, uncomplicated; F33.1 Major depressive disorder, recurrent, moderate; F19.282 Other psychoactive substance dependence with psychoactive substance-induced sleep disorder; F19.280 Other psychoactive substance dependence with psychoactive substance-induced anxiety disorder; F12.20 Cannabis dependence, uncomplicated; F17.210 Nicotine dependence, cigarettes, uncomplicated; I10 Essential (primary) hypertension; E78.5 Hyperlipidemia, unspecified; I25.10 Atherosclerotic heart disease of native coronary artery without angina pectoris; J44.9 Chronic obstructive pulmonary disease, unspecified; M17.0 Bilateral primary osteoarthritis of knee; E11.9 Type 2 diabetes mellitus without complications; G47.00 Insomnia, unspecified; R26.2 Difficulty in walking, not elsewhere classified; Z99.89 Dependence on other enabling machines and devices; S09.90XA Unspecified injury of head, initial encounter; W18.39XA Other fall on same level, initial encounter; Y93.89 Activity, other specified; Y92.238 Other place in hospital as the place of occurrence of the external cause; Z95.5 Presence of coronary angioplasty implant and graft; Z86.19 Personal history of other infectious and parasitic diseases; Z86.11 Personal history of tuberculosis; Z86.69 Personal history of other diseases of the nervous system and sense organs; Z88.6 Allergy status to analgesic agent; Z91.51 Personal history of suicidal behavior
CPT/HCPCS: 36415; 70450-TC; 71046-TC-FY; 72125-TC; 80053; 82140; 82565; 82947; 82962; 83036; 84520; 85027; 86780; 99284-25; C9803-CS; U0003; U0005

== ENCOUNTER 2022-06-19 14:01 | Emergency (ER) | payer OTHER ==
[2022-06-19 14:14] VITALS: BP 108/75; PULSE 64; RESP 18; TEMP 98.7; BMI 25.7
== END 2022-06-19 19:53 | disposition home or self-care (01) ==
LOC: JER 14:01
DX: R51.9 Headache, unspecified (principal); M54.2 Cervicalgia; W19.XXXA Unspecified fall, initial encounter
CPT/HCPCS: 70450-TC; 72125-TC; 99284-25